=== PATIENT | female | born 1945 | race Caucasian/White ===

== ENCOUNTER 2021-07-13 12:30 | Outpatient (RCR) | payer MEDICARE, SELFPAY ==
--- NOTE | 2021-06-09 15:06 | PTOPEVAL ---
Thank you for referring Heidy Maurer to [facility].? The patient is scheduled to be seen for therapy? 1 x/week for 4 weeks with the next 2 wks missed due to out of town. Please review, sign, date and return this plan of care CARRIE. I agree with and certify that the following plan of care is medically necessary. 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 . Subjective Information She has difficulty sleeping Query Text:As Reported By Patient/ due to pain. She c/o pulling Family with reaching behind her back. She c/o constant pain of tania shoulders. She take Alieve for the pain. She refused the injections. Denies numbness and tingling of UE/hand. She has worn a right wrist brace in the past. She dropped her UE resistance to 2# from 5# at her Clinical Data classes 2x/wk. She does a walk life class, use of weights and bands. Aerobic class without the step with light weights. Previous Treatments Previous Treatments For This Problem no Pain Assessment Left Shoulder(s) Reported Pain Level 6 Pain Description Aching Pain Frequency Intermittent Lowest Pain Intensity 0 Greatest Pain Intensity 8 Pain Aggravating Factors Prolonged Position Right Shoulder(s) Reported Pain Level 6 Pain Description Aching,Soreness,Tightness Pain Frequency Intermittent Lowest Pain Intensity 0 Greatest Pain Intensity 8 Pain Aggravating Factors Prolonged Position Cervical and Lumbar ROM Cervical ROM Cervical Flexion (0-60) 60:Active in Degrees Cervical Extension (0-70) 50:Active in Degrees Cervical Lateral Flexion Right (0-50) 30:Active in Degrees Cervical Lateral Flexion Left (0-50) 20:Active in Degrees Cervical Rotation Right (0-90) 60:Active in Degrees Cervical Rotation Left (0-90) 65Active in Degrees Upper Extremity Range of Motion General Upper Extremity Range of Motion Reason Not Measured WNL/Left,WNL/Right Gross Upper Extremity Range of
--- NOTE | 2021-07-13 16:17 | PTOPEVAL ---
Physical Therapy Discharge Note Thank you for referring Heidy Maurer to [facility].?Pt has attended 4 therapy visits to address shoulder pain. She demonstrates normal shoulder motion and strength. She demonstrates improved tolerance with sleeping and normal fitness routine. She has reached maximal potential with skilled therapy services. Will DC skilled PT at this time. Please review, sign, date and return this discharge summary CARRIE. I agree with and certify that the following plan of care is medically necessary. 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 . Subjective Information She reports her shoulder is Query Text:As Reported By Patient/ feeling better. She does feel Family her symptoms are increased by sleeping on her mattress. She was able to tolerate sleeping when in a different bed. She is not having to take medication to help with her pain. Denies limitations with reaching in all directions. Denies numbness and tingling of UE/hand. She cont to use 2# with her Silver sneakers classes 2x/wk. She is more aware her of shoulder position with exercises. She attempted to sleep with pillows under UE, but it did not help with her sleeping. Pain Assessment Left Shoulder(s) Reported Pain Level 0 Pain Description Aching Pain Frequency Intermittent Lowest Pain Intensity 0 Greatest Pain Intensity 1 Right Shoulder(s) Reported Pain Level 0 Pain Description Aching Lowest Pain Intensity 0 Greatest Pain Intensity 1 Upper Extremity Range of Motion General Upper Extremity Range of Motion Reason Not Measured WNL/Left,WNL/Right Gross Upper Extremity Range of Motion no pain with tania shoulder Comments motion in all directions Upper Extremity Muscle Strength Testing General Upper Extremity Strength Gross Upper Extremity Strength Comments tania shoulder flex: 4+/5, abduction 5/5, ext: 5/5, int/ ext rotation: 5/5
== END 2021-07-15 08:49 | disposition home or self-care (01) ==
LOC: ANHPT 12:30
PROVIDERS: PCP Internal Medicine; Visit Provider Orthopaedic Surgery
DX: M25.511 Pain in right shoulder (principal); M25.512 Pain in left shoulder
CPT/HCPCS: 97110; 97161

== ENCOUNTER 2024-02-06 13:21 | Outpatient (CLI) | payer MEDICARE, SELFPAY ==
--- NOTE | ~2024-02-06 | CT_ITS ---
EXAMINATION: CTA brain DATE: 02/06/2024 14:24 INDICATION: Headache. TECHNIQUE: Computed tomographic angiography (CTA) of the head was performed without and with 100 mL O mnipaque-350 intravenous contrast. Automated exposure control and iterative reconstruction technique were employed. The dose-length product was 963.56 mGy-cm. Maximum intensity projection 3D reconstruc tions were created. Volume-rendered 3D reconstructions of the intracranial arteries were created by meir kothari technologist on a separate workstation. COMPARISON: Brain MRI 04/17/2016 FINDINGS: There is no intracranial hemorrhage, acute infarction, or abnormal intracranial mass lesion . The ventricles are normal in size. There are likely changes of ocular lens replacement surgeries. T here is mild mucosal thickening in the ethmoid sinuses. The mastoid air cells are normal. The vertebr al arteries are codominant. 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 There is no significant stenosis of the intracranial internal carotid arteries or anteri or or middle cerebral arteries. Anterior communicating artery is normal. Posterior communicating uyen jailyn are identified. 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 Anterior communicating artery is normal. IMPRESSION: 1. 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 Reviewed, dictated and finalized at location A.
--- NOTE | ~2024-02-06 | MR_ITS ---
EXAMINATION: MR brain/brain stem wo con DATE: 02/06/2024 15:50 INDICATION: Headache. TECHNIQUE: Magnetic resonance imaging (MRI) of the brain and brainstem was performed without intraven ous contrast. COMPARISON: Brain MRI 04/17/2016 FINDINGS: There is no intracranial hemorrhage, acute infarction, or abnormal intracranial mass lesion . The ventricles are normal in size. The paranasal sinuses are clear. The internal auditory canals, i nner ears, and tympanic cavities are normal. The mastoid air cells are normal. There are likely flores es of ocular lens replacement surgeries. IMPRESSION: 1. Normal brain. Reviewed, dictated and finalized at location A. IMPRESSION: 1. Normal brain.
[2024-02-06 14:03] LABS: Estimated Glomerular Filt Rate > 60
== END 2024-02-06 13:22 | disposition home or self-care (01) ==
PROVIDERS: PCP Internal Medicine; Visit Provider Internal Medicine
DX: R51.9 Headache, unspecified (principal)
CPT/HCPCS: 70496; 70551; Q9967